=== PATIENT | female | born 1970 | race Caucasian/White ===

== ENCOUNTER 2018-01-29 06:47 | Outpatient (CLI) | payer BC | END 2018-01-29 06:48 | disposition home or self-care (01) | LOC: BICULT 06:47 | PROVIDERS: ATTEND Nurse Practitioner Family | DX: R10.11 Right upper quadrant pain (principal) | CPT/HCPCS: 76700 ==

== ENCOUNTER 2018-02-21 07:58 | Outpatient (CLI) | payer BC ==
--- NOTE | 2018-02-21 13:27 | NM ---
RADIONUCLIDE HEPATOBILIARY SCAN WITH GALLBLADDER EJECTION FRACTION: History: Right upper quadrant pain. FINDINGS: Early images show physiologic uptake of the radiotracer throughout the hepatic parenchyma. Uptake is first seen within the gallbladder at 8 minutes. Small bowel is not seen early on. After administration of fatty meal, there is progressive excretion of radiotracer from the gallbladde r to the small bowel with ejection fraction of 66%. IMPRESSION: Normal hepatobiliary scan. Normal gallbladder ejection fraction. POS: MENG
== END 2018-02-21 07:59 | disposition home or self-care (01) ==
LOC: NM 07:58
PROVIDERS: ATTEND Internal Medicine Gastroenterology
DX: R10.11 Right upper quadrant pain (principal); R19.4 Change in bowel habit
CPT/HCPCS: 78227; A9537

== ENCOUNTER 2018-03-28 08:38 | Outpatient (CLI) | payer BC ==
[2018-03-28] MEDS ORDERED: Iopamidol 370 76% 100 ML VIAL ONE (18:22)
== END 2018-03-28 08:39 | disposition home or self-care (01) ==
LOC: BICCT 08:38
PROVIDERS: ATTEND Internal Medicine Gastroenterology
DX: R10.11 Right upper quadrant pain (principal); R16.0 Hepatomegaly, not elsewhere classified; K44.9 Diaphragmatic hernia without obstruction or gangrene; M41.9 Scoliosis, unspecified; M47.899 Other spondylosis, site unspecified; M19.90 Unspecified osteoarthritis, unspecified site
CPT/HCPCS: 74177

== ENCOUNTER 2023-11-21 07:46 | Outpatient (CLI) | payer BC | END 2023-11-21 07:47 | disposition home or self-care (01) | LOC: BICMAMMO 07:46 | PROVIDERS: ATTEND Nurse Practitioner Family | DX: N64.52 Nipple discharge (principal); R59.0 Localized enlarged lymph nodes | CPT/HCPCS: 77066; G0279 ==